=== PATIENT | male | born 1980 | race Two or more races ===

== ENCOUNTER 2023-03-14 15:01 | Inpatient (IN) | payer OTHER ==
[~2023-03-14] VITALS: Ht 175.3 cm; Wt 85.2 kg
[2023-03-14 15:30] VITALS: PULSE 77; RESP 20; O2SAT 100
[2023-03-14 16:17] LABS: Basophils # (auto) 0 10 ^3/uL (0-0.2); Eosinophils # (auto) 0 10 ^3/uL (0-0.8); Neutrophils # (auto) 10.3 10 ^3/uL (1.6-8.6)
[2023-03-14 16:19] LABS: Basophils % (auto) 0.1 % (0.0-2.0); Eosinophils % (auto) 0.2 % (0.0-7.0); Hematocrit 53.3 % (41.0-53.0); Hemoglobin 18.1 g/dL (13.5-17.5); Lymphocytes # (auto) 2.1 10 ^3/uL (0.4-5.4); Lymphocytes % (auto) 15.6 % (10.0-50.0); Mean Corpuscular Hemoglobin 29.8 pg (28.0-32.0); Mean Corpuscular Hgb Conc. 33.9 g/dL (32.0-36.0); Mean Corpuscular Volume 87.9 fL (80.0-100.0); Monocytes % (auto) 7.2 % (0.0-12.0); Neutrophils % (auto) 76.9 % (37.0-80.0); Nucleated Red Blood Cells % 0.6 %; Red Blood Cells 6.06 10^6/uL (4.5-5.90); Red Cell Distribution Width 12.8 % (11.8-14.3); White Blood Cell 13.4 10^3/uL (4.4-10.8)
[2023-03-14 16:41] LABS: Alanine Aminotransferase 20 U/L (7-40); Alkaline Phosphatase 101 U/L (46-116); Anion Gap 9 (5-15); Aspartate Aminotransferase 17 U/L (13-40); BUN/Creatinine Ratio 19.3 (10.0-20.0); Bilirubin, Total 0.9 mg/dL (0.2-1.0); Blood Urea Nitrogen 21 mg/dL (9-23); Calcium 9.1 mg/dL (8.7-10.4); Carbon Dioxide 24 mmol/L (20-30); Chloride 103 mmol/L (98-107); Glucose 110 mg/dL (74-106); Potassium 4.7 mmol/L (3.5-5.1); Sodium 136 mmol/L (136-145); Total Protein 7.1 g/dL (5.7-8.2)
[2023-03-14 16:58] LABS: Albumin 4.4 g/dL (3.2-4.8)
[2023-03-14] MEDS ORDERED: BACITRACIN TOP OINT 1 UD PKG TOP ONE (19:00)
[2023-03-14] MEDS ORDERED: ONDANSETRON HCL 4 MG/2 ML VIAL IV ONE ×2 (19:00→21:30)
[2023-03-14] MEDS ORDERED: LIDOCAINE 2%HCL (LOCAL ANESTH.) INJ 20ML MDV ID ONE (19:00)
[2023-03-14] MEDS ORDERED: SODIUM CHLORIDE 0.9% 1,000 ML IVB ONE (19:00)
[2023-03-14] MEDS ORDERED: MORPHINE SULFATE 4 MG/ML SYR/VIAL IV ONE ×2 (19:00→21:30)
[2023-03-14 19:49] LABS: Magnesium 2.1 mg/dL (1.6-2.6)
[2023-03-14 21:15] VITALS: PULSE 85; RESP 18; O2SAT 99
[2023-03-14] MEDS ORDERED: IOHEXOL 300 MG/ML 100ML BOTTLE IJ ONE (21:23)
[2023-03-14] MEDS ORDERED: CLINDAMYCIN 900MG IV 50 ML IV ONE (21:30)
[2023-03-14] MEDS ORDERED: VANCOMYCIN 1GM/250ML 250 ML IV ONE (22:00)
[2023-03-14] MEDS ORDERED: ACETAMINOPHEN 325 MG TAB PO ONE (22:45)
[2023-03-14 23:31] LABS: Urine Bacteria NONE SEEN /hpf (None Seen); Urine Blood Negative /uL (Negative); Urine Clarity Clear (Clear); Urine Color Yellow (Yellow); Urine Mucus FEW (None Seen); Urine Protein, UAD TRACE (Negative); Urine Urobilinogen Normal (Negative); Urine WBC 1 /hpf (0 - 3); Urine pH 5.5 (5.0-8.0)
[2023-03-14] MEDS ORDERED: DexAMETHasone SOD PHOS 10MG/1ML VIAL INJ IV ONE (23:45)
[2023-03-14] MEDS ORDERED: diphenhdrAMINE HCL 50 MG/1 ML VL IV ONE (23:45)
[2023-03-15] MEDS ORDERED: VANCOMYCIN PER PHARMACY 0 MG IV SCH (00:15)
[2023-03-15] MEDS ORDERED: NITROGLYCERIN 0.4 MG SL TAB SL PRN (00:15)
[2023-03-15] MEDS ORDERED: MORPHINE SULFATE INJ 2 MG/ml SYRG IV PRN (00:15)
[2023-03-15] MEDS ORDERED: ACETAMINOPHEN 325 MG TAB PO PRN (00:15)
[2023-03-15] MEDS ORDERED: HYDROcodone-ACET 10/325MG TAB PO PRN (00:15)
[2023-03-15] MEDS ORDERED: diphenhdrAMINE HCL 50 MG/1 ML VL IV ONE ×2 (07:00→19:45)
[2023-03-15] MEDS ORDERED: methylPREDNISolone SOD SUCC 125 MG/2 ML VL IV ONE ×2 (07:00→19:45)
[2023-03-15] MEDS ORDERED: PIPERACILLIN-TAZOB 3.375GM 100 ML IV ONE (07:45)
[2023-03-15 08:23] VITALS: PULSE 77; RESP 18; O2SAT 99
[2023-03-15] MEDS: ENOXAPARIN SOD 40 MG/0.4 ML SYRINGE SC SCH (10:17)
[2023-03-15] MEDS ORDERED: GADOTERATE MEG 10 MMOL/20ml INJ (0.5MMOL/ml) IV ONE (10:38)
[2023-03-15 10:49] VITALS: RESP 18
[2023-03-15 13:44] VITALS: BP 134/76; PULSE 85; RESP 17; TEMP 98; O2SAT 96
[2023-03-15] MEDS ORDERED: PIPERACILLIN-TAZOB 3.375GM 100 ML IV SCH (14:00)
[2023-03-15 17:03] VITALS: BP 119/64; PULSE 73; RESP 16; TEMP 98; O2SAT 96
[2023-03-15] MEDS: PIPERACILLIN-TAZOB 3.375GM 100 ML IV SCH (20:07)
[2023-03-15 22:00] VITALS: BP 129/62; PULSE 70; RESP 18; TEMP 97.9; O2SAT 92
[2023-03-16] MEDS: PIPERACILLIN-TAZOB 3.375GM 100 ML IV SCH ×3 (04:18→20:24)
[2023-03-16 04:57] VITALS: BP 115/69; PULSE 55; RESP 19; TEMP 97.7; O2SAT 96
[2023-03-16 08:00] VITALS: RESP 18
[2023-03-16 09:16] VITALS: BP 110/63; PULSE 61; RESP 19; TEMP 97.8; O2SAT 97
[2023-03-16] MEDS: ENOXAPARIN SOD 40 MG/0.4 ML SYRINGE SC SCH (10:02)
[2023-03-16 13:00] VITALS: BP 111/63; PULSE 58; RESP 19; TEMP 97.9; O2SAT 100
[2023-03-16] MEDS ORDERED: MORPHINE SULFATE INJ 2 MG/ml SYRG IV PRN (14:00)
[2023-03-16] MEDS: HYDROcodone-ACET 5/325MG TAB PO PRN (14:31)
[2023-03-16 22:00] VITALS: BP 124/77; PULSE 68; RESP 18; TEMP 97.9; O2SAT 97
[2023-03-16] MEDS: HYDROcodone-ACET 10/325MG TAB PO PRN (23:42)
[2023-03-17] MEDS: PIPERACILLIN-TAZOB 3.375GM 100 ML IV SCH (03:58)
[2023-03-17] MEDS: HYDROcodone-ACET 10/325MG TAB PO PRN (04:09)
[2023-03-17 05:00] VITALS: BP 112/71; PULSE 59; RESP 18; TEMP 98.2; O2SAT 97
[2023-03-17 09:00] VITALS: BP 122/80; PULSE 93; RESP 20; TEMP 98.1; O2SAT 98
[2023-03-17] MEDS: ENOXAPARIN SOD 40 MG/0.4 ML SYRINGE SC SCH (10:00)
[2023-03-17] MEDS: PANTOPRAZOLE 40 MG TAB PO SCH (10:00)
[2023-03-17] MEDS ORDERED: ONDANSETRON HCL 4 MG/2 ML VIAL IV PRN (10:15)
[2023-03-17] MEDS ORDERED: MEPERIDINE HCL (25 MG/ML) 1ML VIAL IV PRN (10:15)
[2023-03-17] MEDS ORDERED: HYDROmorphone HCL 2 MG/ML VL/or syr IV PRN (10:15)
[2023-03-17] MEDS ORDERED: MEPERIDINE HCL (25 MG/ML) 1ML VIAL ONE (10:20)
[2023-03-17] MEDS ORDERED: fentaNYL CITRATE 100 MCG/2 ML VL ONE (10:20)
[2023-03-17] MEDS ORDERED: PROPOFOL 10 MG/ML 20 ML IV ONE (10:21)
[2023-03-17] MEDS ORDERED: LIDOCAINE 1% (LOCAL ANESTH.) PF 5ml SDV ONE (10:51)
[2023-03-17] MEDS ORDERED: BUPIVACAINE 0.5% P/F INJ 10 ML VIAL ONE (10:51)
[2023-03-17] MEDS ORDERED: ONDANSETRON HCL 4 MG/2 ML VIAL ONE (11:23)
[2023-03-17] MEDS ORDERED: DexAMETHasone SOD PHOS 10MG/1ML VIAL INJ ONE (11:23)
[2023-03-17 11:39] VITALS: PULSE 71; RESP 16; O2SAT 98
[2023-03-17] MEDS ORDERED: diphenhdrAMINE HCL 50 MG/1 ML VL IV ONE (12:00)
[2023-03-17 16:58] VITALS: BP 112/53; PULSE 64; RESP 18; TEMP 98.3; O2SAT 94
[2023-03-17] MEDS: HYDROcodone-ACET 5/325MG TAB PO PRN ×2 (17:05→22:22)
[2023-03-17] MEDS ORDERED: methylPREDNISolone SOD SUCC 125 MG/2 ML VL IV ONE (17:15)
[2023-03-17] MEDS ORDERED: diphenhdrAMINE HCL 50 MG/1 ML VL IV PRN (17:15)
[2023-03-17 20:10] VITALS: PULSE 61; RESP 18; O2SAT 98
[2023-03-17 22:00] VITALS: BP 121/62; PULSE 61; RESP 18; TEMP 97.9; O2SAT 91
[2023-03-17] MEDS: SULFAMETHOX W/TRIMETH(800/160MG) DS TAB PO SCH (22:22)
[2023-03-17] MEDS: LINEZOLID 600MG/300ML 300 ML IV SCH (22:22)
[2023-03-18] VITALS (7 sets, daily range): BP systolic 114–121; BP diastolic 61–72; PULSE 50–64; RESP 16–20; TEMP 97.4–98.2; O2SAT 93–98
[2023-03-18] MEDS: HYDROcodone-ACET 5/325MG TAB PO PRN ×3 (04:00→23:20)
[2023-03-18] MEDS: ENOXAPARIN SOD 40 MG/0.4 ML SYRINGE SC SCH (08:05)
[2023-03-18] MEDS: SULFAMETHOX W/TRIMETH(800/160MG) DS TAB PO SCH ×2 (08:05→21:05)
[2023-03-18] MEDS: LINEZOLID 600MG/300ML 300 ML IV SCH ×2 (08:05→21:06)
[2023-03-18] MEDS: PANTOPRAZOLE 40 MG TAB PO SCH (08:06)
[2023-03-18] MEDS: HYDROcodone-ACET 10/325MG TAB PO PRN ×2 (13:49→21:05)
[2023-03-18] MEDS: DOCUSATE SOD 100 MG CAP PO SCH (21:05)
[2023-03-19 05:00] VITALS: BP 119/76; PULSE 53; RESP 16; TEMP 97.8; O2SAT 99
[2023-03-19 09:00] VITALS: BP 126/72; PULSE 58; RESP 21; TEMP 97.9; O2SAT 98
[2023-03-19] MEDS: DOCUSATE SOD 100 MG CAP PO SCH ×2 (09:59→21:09)
[2023-03-19] MEDS: SULFAMETHOX W/TRIMETH(800/160MG) DS TAB PO SCH ×2 (09:59→21:09)
[2023-03-19] MEDS: LINEZOLID 600MG/300ML 300 ML IV SCH ×2 (09:59→21:10)
[2023-03-19] MEDS: ENOXAPARIN SOD 40 MG/0.4 ML SYRINGE SC SCH (09:59)
[2023-03-19] MEDS: PANTOPRAZOLE 40 MG TAB PO SCH (09:59)
[2023-03-19 12:35] VITALS: BP 121/68; PULSE 66; RESP 21; TEMP 98.2; O2SAT 96
[2023-03-19 16:44] VITALS: BP 128/76; PULSE 52; RESP 20; TEMP 97.5; O2SAT 96
[2023-03-19] MEDS: HYDROcodone-ACET 10/325MG TAB PO PRN (18:28)
[2023-03-19 20:00] VITALS: RESP 16
[2023-03-19] MEDS: HYDROcodone-ACET 5/325MG TAB PO PRN (21:09)
[2023-03-19 22:00] VITALS: BP 116/69; PULSE 58; RESP 16; TEMP 98.4; O2SAT 97
[2023-03-20 05:00] VITALS: BP 114/70; PULSE 47; RESP 16; TEMP 97.1; O2SAT 97
[2023-03-20 06:06] LABS: Basophils # (auto) 0 10 ^3/uL (0-0.2); Basophils % (auto) 0.3 % (0.0-2.0); Eosinophils # (auto) 0.2 10 ^3/uL (0-0.8); Eosinophils % (auto) 2.3 % (0.0-7.0); Hematocrit 47.9 % (41.0-53.0); Lymphocytes % (auto) 50.1 % (10.0-50.0); Mean Corpuscular Hemoglobin 29.7 pg (28.0-32.0); Mean Corpuscular Hgb Conc. 33.4 g/dL (32.0-36.0); Mean Corpuscular Volume 88.9 fL (80.0-100.0); Monocytes # (auto) 0.6 10 ^3/uL (0-1.3); Neutrophils # (auto) 3.2 10 ^3/uL (1.6-8.6); Neutrophils % (auto) 40.3 % (37.0-80.0); Nucleated Red Blood Cells % 0.2 %; Red Blood Cells 5.38 10^6/uL (4.5-5.90); Red Cell Distribution Width 12.6 % (11.8-14.3)
[2023-03-20 06:18] LABS: Chloride 103 mmol/L (98-107); Potassium 4.3 mmol/L (3.5-5.1); Sodium 136 mmol/L (136-145)
[2023-03-20 06:19] LABS: Anion Gap 5 (5-15); Calcium 8.7 mg/dL (8.7-10.4); Carbon Dioxide 28 mmol/L (20-30)
[2023-03-20 06:24] LABS: Blood Urea Nitrogen 16 mg/dL (9-23); Glucose 76 mg/dL (74-106)
[2023-03-20 06:25] LABS: BUN/Creatinine Ratio 11.6 (10.0-20.0)
[2023-03-20 08:55] VITALS: BP 107/63; PULSE 63; RESP 21; TEMP 98; O2SAT 98
[2023-03-20] MEDS: LINEZOLID 600MG/300ML 300 ML IV SCH ×2 (09:18→22:23)
[2023-03-20] MEDS: DOCUSATE SOD 100 MG CAP PO SCH ×2 (09:19→22:00)
[2023-03-20] MEDS: SULFAMETHOX W/TRIMETH(800/160MG) DS TAB PO SCH ×2 (09:19→22:24)
[2023-03-20] MEDS: PANTOPRAZOLE 40 MG TAB PO SCH (09:19)
[2023-03-20] MEDS: ENOXAPARIN SOD 40 MG/0.4 ML SYRINGE SC SCH (09:19)
[2023-03-20] MEDS: LORATADINE 10 MG TAB PO SCH (10:00)
[2023-03-20 12:33] VITALS: BP 113/73; PULSE 61; RESP 19; TEMP 98; O2SAT 96
[2023-03-20] MEDS: HYDROcodone-ACET 5/325MG TAB PO PRN ×2 (15:07→22:48)
[2023-03-20 17:11] VITALS: BP 115/70; PULSE 62; RESP 21; TEMP 98; O2SAT 97
[2023-03-20 20:00] VITALS: BP 120/64; PULSE 57; RESP 18; TEMP 98.7; O2SAT 100
[2023-03-20 21:58] VITALS: BP 120/81; PULSE 57; RESP 18; TEMP 98.7; O2SAT 100
[2023-03-21 05:00] VITALS: BP 113/65; PULSE 79; RESP 17; TEMP 98.8; O2SAT 96
[2023-03-21 09:00] VITALS: BP 105/63; PULSE 54; RESP 16; TEMP 97.8; O2SAT 96
[2023-03-21] MEDS: DOCUSATE SOD 100 MG CAP PO SCH ×2 (09:49→22:00)
[2023-03-21] MEDS: LINEZOLID 600MG/300ML 300 ML IV SCH ×2 (09:49→23:33)
[2023-03-21] MEDS: SULFAMETHOX W/TRIMETH(800/160MG) DS TAB PO SCH ×2 (09:50→22:08)
[2023-03-21] MEDS: PANTOPRAZOLE 40 MG TAB PO SCH (09:50)
[2023-03-21] MEDS: ENOXAPARIN SOD 40 MG/0.4 ML SYRINGE SC SCH (09:50)
[2023-03-21] MEDS: HYDROcodone-ACET 10/325MG TAB PO PRN ×2 (09:50→20:14)
[2023-03-21] MEDS: LORATADINE 10 MG TAB PO SCH (09:50)
[2023-03-21 13:00] VITALS: BP 104/64; PULSE 56; RESP 14; TEMP 97.8; O2SAT 96
[2023-03-21 16:41] VITALS: BP 106/64; PULSE 68; RESP 16; TEMP 97.6; O2SAT 95
[2023-03-21 20:00] VITALS: BP 117/60; PULSE 63; RESP 18; TEMP 98; O2SAT 95
[2023-03-21 22:00] VITALS: BP 117/60; PULSE 63; RESP 18; TEMP 98; O2SAT 94
[2023-03-22] VITALS (7 sets, daily range): BP systolic 98–117; BP diastolic 58–72; PULSE 50–64; RESP 16–18; TEMP 97.4–98.1; O2SAT 96–97
[2023-03-22] MEDS: ENOXAPARIN SOD 40 MG/0.4 ML SYRINGE SC SCH (09:47)
[2023-03-22] MEDS: PANTOPRAZOLE 40 MG TAB PO SCH (09:47)
[2023-03-22] MEDS: LINEZOLID 600MG/300ML 300 ML IV SCH ×2 (09:48→22:05)
[2023-03-22] MEDS: SULFAMETHOX W/TRIMETH(800/160MG) DS TAB PO SCH ×2 (09:48→22:03)
[2023-03-22] MEDS: LORATADINE 10 MG TAB PO SCH (09:48)
[2023-03-22] MEDS: DOCUSATE SOD 100 MG CAP PO SCH ×2 (09:48→22:04)
[2023-03-22] MEDS: HYDROcodone-ACET 10/325MG TAB PO PRN ×2 (16:22→22:04)
[2023-03-23 05:00] VITALS: BP 99/59; PULSE 52; RESP 18; TEMP 97.4; O2SAT 94
[2023-03-23 08:00] VITALS: PULSE 60; RESP 18; O2SAT 96
[2023-03-23 09:18] VITALS: BP 102/63; PULSE 60; RESP 18; TEMP 97.7; O2SAT 96
[2023-03-23] MEDS: PANTOPRAZOLE 40 MG TAB PO SCH (10:44)
[2023-03-23] MEDS: LORATADINE 10 MG TAB PO SCH (10:44)
[2023-03-23] MEDS: DOCUSATE SOD 100 MG CAP PO SCH ×2 (10:45→22:19)
[2023-03-23] MEDS: LINEZOLID 600MG/300ML 300 ML IV SCH ×2 (10:45→22:17)
[2023-03-23] MEDS: SULFAMETHOX W/TRIMETH(800/160MG) DS TAB PO SCH ×2 (10:45→22:19)
[2023-03-23] MEDS: ENOXAPARIN SOD 40 MG/0.4 ML SYRINGE SC SCH (10:45)
[2023-03-23 13:19] VITALS: BP 104/65; PULSE 57; RESP 18; TEMP 98.1; O2SAT 98
[2023-03-23] MEDS: HYDROcodone-ACET 10/325MG TAB PO PRN ×2 (17:55→22:19)
[2023-03-23 20:00] VITALS: BP 116/64; PULSE 63; RESP 18; TEMP 98; O2SAT 97
[2023-03-23 22:00] VITALS: BP 116/64; PULSE 63; RESP 18; TEMP 98; O2SAT 97
[2023-03-24] VITALS (7 sets, daily range): BP systolic 98–121; BP diastolic 59–72; PULSE 60–66; RESP 16–18; TEMP 97.6–98.3; O2SAT 95–98
[2023-03-24] MEDS: LINEZOLID 600MG/300ML 300 ML IV SCH ×2 (10:45→23:04)
[2023-03-24] MEDS: SULFAMETHOX W/TRIMETH(800/160MG) DS TAB PO SCH ×2 (10:45→23:03)
[2023-03-24] MEDS: LORATADINE 10 MG TAB PO SCH (10:45)
[2023-03-24] MEDS: ENOXAPARIN SOD 40 MG/0.4 ML SYRINGE SC SCH (10:46)
[2023-03-24] MEDS: DOCUSATE SOD 100 MG CAP PO SCH ×2 (10:46→23:02)
[2023-03-24] MEDS: PANTOPRAZOLE 40 MG TAB PO SCH (10:46)
[2023-03-24] MEDS: HYDROcodone-ACET 5/325MG TAB PO PRN (15:24)
[2023-03-25] MEDS: HYDROcodone-ACET 5/325MG TAB PO PRN (04:08)
[2023-03-25 04:57] VITALS: BP 112/70; PULSE 84; RESP 16; TEMP 97.5; O2SAT 53
[2023-03-25 08:00] VITALS: PULSE 61; RESP 17; O2SAT 95
[2023-03-25 09:16] VITALS: BP 109/64; PULSE 61; RESP 17; TEMP 98.1; O2SAT 95
[2023-03-25] MEDS: ENOXAPARIN SOD 40 MG/0.4 ML SYRINGE SC SCH (09:32)
[2023-03-25] MEDS: PANTOPRAZOLE 40 MG TAB PO SCH (09:32)
[2023-03-25] MEDS: LINEZOLID 600MG/300ML 300 ML IV SCH (09:32)
[2023-03-25] MEDS: LORATADINE 10 MG TAB PO SCH (09:33)
[2023-03-25] MEDS: DOCUSATE SOD 100 MG CAP PO SCH (09:33)
[2023-03-25] MEDS: SULFAMETHOX W/TRIMETH(800/160MG) DS TAB PO SCH (09:33)
[2023-03-25 12:27] VITALS: BP 101/63; PULSE 55; RESP 18; TEMP 97.9; O2SAT 97
[2023-03-25] MEDS ORDERED: CIPR500T4 PO (13:42)
[2023-03-25 14:05] VITALS: TEMP 36.6
== END 2023-03-25 16:00 | DRG 572 ==
LOC: EEVIPCON 15:01 → ER 15:01 → EDBD 15:01 → OVERFLOW 03-15 00:19 → CENTRAL 03-15 08:45
PROVIDERS: ADMIT Internal Medicine; ATTEND Internal Medicine
PROC: 0H97XZZ Drainage of Abdomen Skin, External Approach (ICD-10-PCS; 2023-03-15)
PROC: 0JB80ZZ Excision of Abdomen Subcutaneous Tissue and Fascia, Open Approach (ICD-10-PCS; principal; 2023-03-17 10:57)
DX: L02.211 Cutaneous abscess of abdominal wall (principal); L51.9 Erythema multiforme, unspecified; L03.311 Cellulitis of abdominal wall; E66.9 Obesity, unspecified; Z68.32 Body mass index [BMI] 32.0-32.9, adult; Z88.1 Allergy status to other antibiotic agents; B95.62 Methicillin resistant Staphylococcus aureus infection as the cause of diseases classified elsewhere
CPT/HCPCS: 10060; 36415; 71045; 74177; 74183; 80048; 80053; 81001; 83605; 83690; 83735; 85025; 87040; 87077; 87186; 87205; 93005; G0378; J1100; J2405; J2543; J2704; J3490